=== PATIENT | female | born 1985 | race Caucasian/White ===

== ENCOUNTER 2020-09-11 09:08 | Outpatient (CLI) | payer OTHER | END 2020-09-11 09:09 | disposition home or self-care (01) | LOC: COV 09:08 | PROVIDERS: ATTEND Family Medicine | DX: R50.9 Fever, unspecified (principal); Z20.828 Contact with and (suspected) exposure to other viral communicable diseases; R05 Cough; M79.10 Myalgia, unspecified site; R53.83 Other fatigue; R11.2 Nausea with vomiting, unspecified; R19.7 Diarrhea, unspecified; R09.81 Nasal congestion; J02.9 Acute pharyngitis, unspecified ==

== ENCOUNTER 2020-11-24 10:10 | Outpatient (CLI) | payer OTHER ==
--- NOTE | 2020-11-26 09:27 | MRI Report ---
PROCEDURE: Hip RT W/O INDICATIONS: CHRONIC RIGHT HIP PAIN TECHNIQUE: Noncontrast coronal T1 spin echo and STIR through the bony pelvis. Coronal and axial T2 fast spin ec ho with fat saturation, sagittal T1 spin echo, and oblique axial T2 fast spin echo with fat saturatio n through the hip. COMPARISON: None. FINDINGS: Image quality: Excellent. Bones and joints: Bone marrow of the pelvic ring and proximal femurs show normal signal throughout. No intraosseous lesions or fractures. No avascular necrosis of the femoral heads. The visualized l ower lumbar spine appears normally aligned. Tendons: The gluteus medius and minimus tendons appear intact, without associated muscle atrophy. T he iliopsoas tendon appears intact, without adjacent bursal fluid collections. The origin of the ham string tendon is intact at the ischial tuberosity. Labrum and cartilage: The acetabular labrum appears intact in the absence of intra-articular contras t. Cartilage surface of the femoral head appears of normal thickness. The alpha angle of the femur is within normal limits at less than 55 degrees. Soft tissues: Visualized muscles demonstrate normal bulk and internal signal. The proximal sciatic neurovascular bundle appears normal adjacent to the hamstring tendons. No free pelvic fluid. Bladde r wall thickness is normal. Genitourinary structures and bowel loops appear normal where visualized. IMPRESSION: 1. Unremarkable MR examination of right hip. No evidence of internal derangement. No gross focal labr al tear. Reviewed by: Rupesh Hummel MD on 11/26/2020 9:26 AM PST Approved by: Rupesh Hummel MD on 11/26/2020 9:26 AM PST Station ID: [id number]
== END 2020-11-24 10:11 | disposition home or self-care (01) ==
LOC: DI 10:10
PROVIDERS: ATTEND Family Medicine
DX: M25.551 Pain in right hip (principal); G89.29 Other chronic pain

== ENCOUNTER 2022-12-17 23:15 | Emergency (ER) | payer OTHER ==
[2022-12-17 23:43] LABS: BASOPHILS # (AUTO) 0.1 10^3/uL (0.0-0.1); BASOPHILS % (AUTO) 0.6 %; EOSINOPHILS # (AUTO) 0.1 10^3/uL (0.0-0.7); EOSINOPHILS % (AUTO) 1.6 %; HCT - HEMATOCRIT 37.2 % (37.0-47.0); HGB - HEMOGLOBIN 11.2 g/dL (12.0-16.0); LYMPHOCYTES # (AUTO) 2.6 10^3/uL (1.5-3.5); LYMPHOCYTES % (AUTO) 31.2 %; MEAN CORPUSCULAR HEMOGLOBIN 24.2 pg (27.0-31.0); MEAN CORPUSCULAR HGB CONC 30.1 g/dL (32.0-36.0); MEAN CORPUSCULAR VOLUME 80.5 fL (81.0-99.0); MEAN PLATELET VOLUME 10.5 fL (7.9-10.8); MONOCYTES # (AUTO) 0.6 10^3/uL (0.0-1.0); MONOCYTES % (AUTO) 6.7 %; NEUTROPHILS % (AUTO) 59.8 %; PLT - PLATELET COUNT 378 10^3/uL (130-450); RED BLOOD COUNT 4.62 10^6/uL (4.20-5.40); RED CELL DISTRIBUTION WIDTH 15.4 % (12.0-15.0); WHITE BLOOD COUNT 8.3 x10^3/uL (4.8-10.8)
[2022-12-18 00:05] LABS: ALBUMIN 4.4 g/dL (3.2-5.5); ALBUMIN/GLOBULIN RATIO 1.4 (1.0-2.2); BILIRUBIN,TOTAL 0.5 mg/dL (0.2-1.0); CALCIUM 9.2 mg/dL (8.5-10.3); CREATININE 0.7 mg/dL (0.4-1.0); POTASSIUM 3.4 mmol/L (3.5-5.0); TOTAL PROTEIN 7.5 g/dL (6.7-8.2)
--- NOTE | 2022-12-18 00:35 | XRAY Report ---
PROCEDURE: Chest 1 View X-Ray INDICATIONS: Chest pain TECHNIQUE: One view of the chest was acquired. COMPARISON: None. FINDINGS: Surgical changes and devices: None. Lungs and pleura: No pleural effusions or pneumothorax. Lungs are clear. Mediastinum: Mediastinal contours appear normal. Heart size is normal. Bones and chest wall: No suspicious bony lesions. Overlying soft tissues appear unremarkable. IMPRESSION: 1. No acute cardiopulmonary disease. Reviewed by: Adam Engel MD on 12/18/2022 12:45 AM [facility]UST Approved by: Adam Engel MD on 12/18/2022 12:45 AM RUST Station ID: [id number]
--- NOTE | 2022-12-18 01:12 | ED Physician Documentation ---
PD HPI CHEST PAIN - Stated complaint Stated Complaint: CHEST PX, HEART PALPATATIONS - Chief complaint Chief Complaint: Cardiac - History obtained from History obtained from: Patient - Additional information Additional information: HPI from patient. Patient presents with chief complaint of anterior midline chest pressure, intermittent over the past 2 to 3 days. There were no inciting, exacerbating, nor ameliorating factors. She has not had these symptoms before. This evening, the chest discomfort was associated with lightheadedness thus she presents the emergency department for evaluation of the symptoms. Patient says she was recently diagnosed with iron deficiency anemia was started on oral iron supplements for this.Otherwise, she takes no prescription medications and has no other past medical history. Review of Systems Constitutional: denies: Sweats Cardiac: reports: Chest pain / pressure. denies: Palpitations, Pedal edema, Calf pain Respiratory: reports: Reviewed and negative GI: reports: Reviewed and negative : denies: Now [facility] PAST MEDICAL HISTORY - Past Medical History Past Medical History: No - Past Surgical History Past Surgical History: No - Present Medications Home Medications: Ambulatory Orders Medication Instructions Recorded Confirmed Ferrous Sulfate [Feosol] 325 mg PO DAILY 12/17/22 12/17/22 - Allergies Allergies/Adverse Reactions: Allergies Allergy/AdvReac Type Severity Reaction Status Date / Time No Known Drug Allergies Allergy Verified 12/17/22 23:20 - Social History Does the pt smoke?: No Smoking Status: Never smoker Does the pt drink ETOH?: No Does the pt have substance abuse?: No - Immunizations Immunizations are current?: Yes - POLST Patient has POLST: No PD ED PE NORMAL - Vitals Vital signs reviewed: Yes - General General: Alert and oriented X 3, No acute distress, Well developed/nourished - Cardiac Cardiac: RRR, No murmur, No gallop, No rub - Respiratory Respiratory: No respiratory distress, Clear bilaterally - Abdomen Abdomen: Soft, Non tender - Extremities Extremities: No edema Results - Vitals Vitals: Oxygen O2 Source Room air - EKG (time done) No standard instances Rate: Rate (enter#) (81) Rhythm: NSR [place]: Normal Intervals: Normal CA QRS: Normal Ischemia: Normal ST segments - Labs Labs: Laboratory Tests 12/17/22 12/17/22 12/17/22 23:31 23:31 23:31 WBC 8.3 RBC 4.62 Hgb 11.2 L Hct 37.2 MCV 80.5 L MCH 24.2 L MCHC 30.1 L RDW 15.4 H Plt Count 378 MPV 10.5 Neut # (Auto) 5.0 Lymph # (Auto) 2.6 [place] # (Auto) 0.6 Eos # (Auto) 0.1 Baso # (Auto) 0.1 Absolute Nucleated RBC 0.00 Nucleated RBC % 0.0 Sodium 136 Potassium 3.4 L Chloride 101 Carbon Dioxide 23 Anion Gap 12.0 BUN 10 Creatinine 0.7 Estimated GFR (MDRD) 94 Glucose 96 Calcium 9.2 Total Bilirubin 0.5 AST 18 ALT 15 Alkaline Phosphatase 50 Troponin I High Sens < 2.3 L Total Protein 7.5 Albumin 4.4 Globulin 3.1 Albumin/Globulin Ratio 1.4 Lipase 58 H - Rads (name of study) chest xray Radiology: Prelim report reviewed, EMP read indepedently, See rad report PD Medical Decision Making - ED course Complexity details: reviewed results, re-evaluated patient, considered differential, d/w patient ED course: Test ordered and results reviewed by me: CBC, abdominal panel, troponin, EKG, chest x-ray. There are no concerning or diagnostic findings on these tests. Incidental note is made of minimal hypokalemia (3.4). For this she was given 20 mill equivalents of potassium chloride orally prior to discharge. Her hemoglobin is 11.2, slightly below normal range; her hematocrit is normal (37.2). I discussed these results with the patient. She is able to show me recent outpatient results of blood tests that led to the diagnosis of anemia, and her most recent hemoglobin (December 14, 2022) was 10.6. The cause of patient's symptoms is not apparent at this time, but no further testing is indicated from emergent standpoint. Return precautions are discussed and I advised her to follow-up with her primary care provider next available appointment for reevaluation. Departure - Departure Disposition: 01 Home, Self Care Clinical Impression: Atypical chest pain Condition: Good Instructions: ED Chest Pain Atypical Unkn Cause Follow-Up: LEAH OSMAN MD [Primary Care Provider] - Comments: There were no concerning or diagnostic findings on tonight's test. This includes the blood test, EKG, and chest x-ray. As we discussed, your potassium was below the normal range but by the smallest measurable increment. This is an incidental finding; it is not nearly low enough to cause any symptoms nor reason for concern. You were given a dose of potassium prior to discharge from emergency department and I recommend that you mention to your primary care provider that your potassium was slightly low (3.4); they might recommend rechecking this test to ensure that it is into a normal range when you are reevaluated. The cause of your symptoms is not apparent at this time, but further testing from an emergency perspective is unnecessary. Certainly, you should return to the emergency department if your symptoms worsen in any way. Otherwise, follow- up with your primary care provider for reevaluation regarding the symptoms. Also, as we discussed, your red blood cell level was just below the normal range, and, improved compared to the outpatient blood test you had December 14. The hemoglobin (one measure of red blood cell level) 12/14/22 was 10.6 and tonight it is 11.2. Discharge Date/Time: 12/18/22 01:48
[2022-12-18] MEDS ORDERED: POTASSIUM CHLORIDE 20 MEQ TABLET PO STA (01:39)
[2022-12-18 01:41] VITALS: BP 102/80
== END 2022-12-18 01:48 | disposition home or self-care (01) ==
LOC: ED 23:15
DX: R07.89 Other chest pain (principal); E87.6 Hypokalemia; D50.9 Iron deficiency anemia, unspecified
CPT/HCPCS: 36415; 71045; 80053; 83690; 84484; 85025; 93005; 99284; A9270

== ENCOUNTER 2023-12-15 10:33 | Outpatient (CLI) | payer MEDICAID ==
[2023-12-15 14:50] LABS: BASOPHILS # (AUTO) 0.1 10^3/uL (0.0-0.1); BASOPHILS % (AUTO) 0.9 %; EOSINOPHILS # (AUTO) 0.1 10^3/uL (0.0-0.7); EOSINOPHILS % (AUTO) 2.4 %; HCT - HEMATOCRIT 36.8 % (37.0-47.0); HGB - HEMOGLOBIN 11.4 g/dL (12.0-16.0); LYMPHOCYTES # (AUTO) 1.4 10^3/uL (1.5-3.5); LYMPHOCYTES % (AUTO) 26.8 %; MEAN CORPUSCULAR HEMOGLOBIN 27.5 pg (27.0-31.0); MEAN CORPUSCULAR VOLUME 88.9 fL (81.0-99.0); MEAN PLATELET VOLUME 11.6 fL (7.9-10.8); MONOCYTES # (AUTO) 0.5 10^3/uL (0.0-1.0); NEUTROPHILS # (AUTO) 3.2 10^3/uL (1.5-6.6); NEUTROPHILS % (AUTO) 60.7 %; PLT - PLATELET COUNT 279 10^3/uL (130-450); RED BLOOD COUNT 4.14 10^6/uL (4.20-5.40); RED CELL DISTRIBUTION WIDTH 15.5 % (12.0-15.0); WHITE BLOOD COUNT 5.3 x10^3/uL (4.8-10.8)
[2023-12-15 16:25] LABS: ALBUMIN 4.3 g/dL (3.2-5.5); ALBUMIN/GLOBULIN RATIO 1.8 (1.0-2.2); ALKALINE PHOSPHATASE 52 IU/L (42-121); ALT ALANINE AMINOTRANSFERASE 13 IU/L (10-60); AST ASPARTATE AMINOTRANSFERASE 14 IU/L (10-42); BILIRUBIN,TOTAL 0.4 mg/dL (0.2-1.0); BUN - BLOOD UREA NITROGEN 9 mg/dL (6-20); CALCIUM 9.6 mg/dL (8.5-10.3); CARBON DIOXIDE - CO2 31 mmol/L (21-32); CHLORIDE 104 mmol/L (101-111); CREATININE 0.7 mg/dL (0.6-1.3); CRP - C-REACTIVE PROTEIN < 0.5 mg/dL (<0.5); GFR - MDRD 94 (>89); GLUCOSE 83 mg/dL (74-104); LIPASE 57 U/L (11-82); POTASSIUM 3.9 mmol/L (3.5-4.5); SODIUM 139 mmol/L (135-145); TOTAL PROTEIN 6.7 g/dL (6.4-8.9)
== END 2023-12-15 10:34 | disposition home or self-care (01) ==
LOC: LAB.S 10:33
PROVIDERS: ATTEND Registered Nurse
DX: R10.9 Unspecified abdominal pain (principal)
CPT/HCPCS: 36415; 80053; 83690; 85025; 86140

== ENCOUNTER 2023-12-26 08:55 | Outpatient (CLI) | payer MEDICAID ==
--- NOTE | 2023-12-26 13:34 | Ultrasound Report ---
PROCEDURE: Pelvic w/Transvaginal INDICATIONS: ABD PAIN TECHNIQUE: Real-time scanning was performed of the pelvic organs, with image documentation. Additional endovagi nal scanning was necessary due to incomplete visualization of the adnexal and endometrial structures by transabdominal scanning. COMPARISON: None. FINDINGS: Uterus: Uterus is anteverted and normal in size at 9.4 x 4.2 x 5.0 cm. The myometrium is homogeneou s. The endometrium measures 1.2 mm in combined thickness. There is a midline posterior submucosal f ibroid which measures 2.6 x 2.7 x 3.1 cm. Ovaries: The right ovary measures 2.3 x 1.3 x 1.6 cm, with a calculated ovarian volume of 2.5 cc. T he left ovary measures 2.8 x 2.5 x 2.0 cm, with a calculated ovarian volume of 9.8 cc. The ovaries h ave a normal sonographic appearance. Less than 12 follicles can be seen in each ovary. No adnexal m asses are seen. Is a left corpus luteal cyst which measures 1.9 x 1.9 x 1.3 cm. Other: No pathologic free abdominal or pelvic fluid. IMPRESSION: 1. Submucosal uterine fibroid. 2. Left corpus luteal cyst. Reviewed by: Miley Nielsen MD on 12/26/2023 1:32 PM PST Approved by: Miley Nielsen MD on 12/26/2023 1:32 PM PST Station ID: [id number]
--- NOTE | 2023-12-26 13:39 | Ultrasound Report ---
PROCEDURE: Abdomen Limited INDICATIONS: ABD PAIN TECHNIQUE: Real-time focused scanning was performed of the abdomen, with image documentation. COMPARISONS: None. FINDINGS: Liver: Liver is normal in size and homogeneous in echotexture. Gallbladder: Bladder wall measures 3 mm in diameter. No stones, sludge, pericholecystic fluid or sono graphic Clarke sign. Biliary ducts: Intrahepatic bile ducts are non-dilated. Extrahepatic bile duct caliber measures 1 m m. Normal is 6-7 mm or less in diameter, or 10 mm or less post-cholecystectomy. Pancreas: Visualized portions of the pancreas are sonographically normal. Right kidney: Normal in size and echotexture. Right kidney measures 9.4 cm long. No hydronephrosis o r nephrolithiasis. No solid masses. No complex renal cystic lesions which require follow-up. Aorta: Visualized aorta is normal in caliber at less than 3 cm. IVC: Intrahepatic inferior vena cava is patent. Miscellaneous: No free abdominal fluid. IMPRESSION: 1. No cholelithiasis or findings to suggest choledocholithiasis or acute cholecystitis. Reviewed by: Miley Nielsen MD on 12/26/2023 1:37 PM PST Approved by: Miley Nielsen MD on 12/26/2023 1:37 PM PST Station ID: [id number]
== END 2023-12-26 08:56 | disposition home or self-care (01) ==
LOC: DI 08:55
PROVIDERS: ATTEND Registered Nurse
DX: R10.11 Right upper quadrant pain (principal); D25.0 Submucous leiomyoma of uterus; N83.12 Corpus luteum cyst of left ovary